=== PATIENT | male | born 1960 | race Caucasian/White ===

== ENCOUNTER 2017-01-15 23:51 | Emergency (ER) | payer OTHER ==
[2017-01-16 00:21] VITALS: BP 95/66; PULSE 95; TEMP 97.7; BMI 28.7
--- NOTE | 2017-01-16 00:33 | PDOC ---
History of Present Illness - General Chief Complaint: Alcohol intoxication Stated Complaint: INTOX Time Seen by Provider: 01/16/17 00:32 Past History - Past Medical History Allergies/Adverse Reactions: Allergies Allergy/AdvReac Type Severity Reaction Status Date / Time No Known Allergies Allergy Verified 01/16/17 00:05 Diabetes: Yes HTN: Yes Psychiatric Problems: Yes (Anxiety) - Surgical History Cholecystectomy: Yes - Psycho/Social/Smoking Cessation Hx Anxiety: Yes Suicidal Ideation: No Smoking History: Current every day smoker Number of Cigarettes Smoked Daily: 5 Information on smoking cessation initiated: No Hx Alcohol Use: Yes Drug/Substance Use Hx: No Substance Use Type: Alcohol *Physical Exam - Vital Signs Last Vital Signs Temp Pulse Resp BP Pulse Ox 97.7 F 95 H 20 95/66 96 01/16/17 00:05 01/16/17 00:05 01/16/17 00:05 01/16/17 00:05 01/16/17 00:05
== END 2017-01-16 01:20 | disposition left against medical advice (07) ==
LOC: JER 23:51
DX: Z53.1 Procedure and treatment not carried out because of patient's decision for reasons of belief and group pressure (principal)
CPT/HCPCS: 99281-25

== ENCOUNTER 2017-03-27 17:48 | Emergency (ER) | payer OTHER ==
[2017-03-27 17:52] VITALS: BMI 29.7
--- NOTE | 2017-03-27 19:11 | PDOC ---
History of Present Illness - General Chief Complaint: Psychiatric Stated Complaint: FATIGUE/ DEPRESSION Time Seen by Provider: 03/27/17 19:11 - History of Present Illness Initial Comments: 56 year old with history of anxiety, depression, and EtOh abuse presenting for anxiety and depression. He was supposed to be admitted to inpatient rehab at [facility] yesterday but there were unable to accommodate him so they told him to return on Wednesday. He states that he has nowhere to go and he was recently kicked out of his girlfriend's apartment. After speaking to [facility] in length ( they were very helpful) he is ineligible for detox because he was recently detoxed and must return there on Wednesday for a rehab admission. Denies current SI , or HI, but does say he feels the need to drink. He does not admit to any signs of withdrawal and has not been hospitalized for withdrawal in the past. 03/27/17 20:37 Past History - Past Medical History Allergies/Adverse Reactions: Allergies Allergy/AdvReac Type Severity Reaction Status Date / Time fish derived Allergy Verified 03/27/17 18:54 Home Medications: Ambulatory Orders Aripiprazole 10 mg PO DAILY 03/27/17 Chlordiazepoxide [Librium -] 5 mg PO QID 03/27/17 Escitalopram Oxalate [Lexapro -] 20 mg PO DAILY 03/27/17 Flunisolide 25 ml NS TID 03/27/17 Folic Acid 1 mg PO DAILY 03/27/17 Lisinopril 10 mg PO DAILY 03/27/17 Metformin HCl 500 mg PO BID 03/27/17 Mirtazapine 45 mg PO HS 03/27/17 Multivitamin [One Daily] 1 each PO DAILY 03/27/17 Naltrexone HCl 50 mg PO DAILY 03/27/17 Nicotine Patch [Nicoderm Patch -] 1 patch TD DAILY 03/27/17 Pantoprazole Sodium 40 mg PO DAILY 03/27/17 Thiamine HCl [Vitamin B1] 100 mg NR DAILY 03/27/17 Diabetes: Yes HTN: Yes Psychiatric Problems: Yes (Anxiety) - Surgical History Cholecystectomy: Yes - Suicide/Smoking/Psychosocial Hx Smoking History: Current every day smoker Number of Cigarettes Smoked Daily: 5 Information on smoking cessation initiated: Yes 'Breaking Loose' booklet given: 03/27/17 Hx Alcohol Use: Yes (almost daily) Drug/Substance Use Hx: Yes (marijuana) Substance Use Type: None Review of Systems - Review of Systems Constitutional: No: Diaphoresis, Loss of Appetite, Night Sweats HEENTM: No: Recent change in vision Respiratory: No: Cough, Shortness of Breath : No: Hematuria, Incontinence Integumentary: No: Bruising, Change in Color Neurological: No: Headache, Numbness Psychiatric: Yes: Anxiety, Depression *Physical Exam - Vital Signs Last Vital Signs Temp Pulse Resp BP Pulse Ox 98.1 F 94 H 18 146/81 97 03/27/17 17:50 03/27/17 17:50 03/27/17 17:50 03/27/17 17:50 03/27/17 17:50 - Physical Exam General Appearance: Yes: Nourished, Appropriately Dressed. No: Apparent Distress HEENT: positive: EOMI, GIULIA, Normal ENT Inspection, Normal Voice Neck: positive: Trachea midline, Normal Thyroid, Supple. negative: Tender, Rigid Respiratory/Chest: positive: Lungs Clear, Normal Breath Sounds. negative: Chest Tender, Respiratory Distress Cardiovascular: positive: Regular Rhythm, Regular Rate Gastrointestinal/Abdominal: positive: Normal Bowel Sounds, Soft. negative: Tender, Flat Musculoskeletal: positive: Normal Inspection. negative: CVA Tenderness Integumentary: positive: Normal Color, Dry, Warm Neurologic: positive: health plan specialist II-XII NML intact, Fully Oriented, Alert, Normal Mood/ Affect, Normal Response, Motor Strength 5/5 Medical Decision Making - Medical Decision Making Patient medically stable with last drink yesterday evening and a positive blood alcohol level yesterday but currently not intoxicated or showing signs of withdrawal. Will observe the patient until 8 AM at which poitn he can seek nursing home at his girlfriend's place or a nursing home until Wednesday where he can re- visit [facility] and initiate inpatient rehab. 03/27/17 21:04 *DC/Admit/Observation/Transfer Diagnosis at time of Disposition: Depression Qualifiers: Depression Type: unspecified Qualified Code(s): F32.9 - Major depressive disorder, single episode, unspecified; F32.9 - Major depressive disorder, single episode, unspecified; F32.9 - Major depressive disorder, single episode, unspecified - Discharge Dispostion Admit: No - Patient Instructions Additional Instructions: Please either stay at a nursing home until Wednesday or with your girlfriend until they an accommodate you at [facility]
--- NOTE | 2017-03-27 19:44 | PDOC ---
Attending Attestation - Resident Resident Name: Oleg Metcalf - ED Attending Attestation I have performed the following: I have examined & evaluated the patient, The case was reviewed & discussed with the resident, I agree w/resident's findings & plan, Exceptions are as noted - HPI HPI: 03/27/17 21:00 56y M presenting with wanting rehab. The pt staes he recently was admitted to [facility] for detox and was discharged to [facility] for rehab, however there was no bed availble for him until wednesday so he came here. the pt is otherwise asymptomatic, but states he did have some etoh after leaving detox. on exam the pt appears well and is in no distress. deneis any si/hi, lungs cta will like dc the pt to rehab or home until there is avaiable rehab bed. - Physicial Exam PE: 03/28/17 08:02 see above - Medical Decision Making 03/28/17 08:03 see above
[2017-03-27 20:23] VITALS: PULSE 81
[2017-03-28 07:04] VITALS: BP 133/87; TEMP 97.8
== END 2017-03-28 09:51 | disposition home or self-care (01) ==
LOC: JER 17:48
DX: F32.9 Major depressive disorder, single episode, unspecified (principal); F10.10 Alcohol abuse, uncomplicated; F41.8 Other specified anxiety disorders; E11.9 Type 2 diabetes mellitus without complications; I10 Essential (primary) hypertension; F17.210 Nicotine dependence, cigarettes, uncomplicated
CPT/HCPCS: 99283-25

== ENCOUNTER 2017-03-28 13:55 | Emergency (ER) | payer OTHER ==
[2017-03-28 14:01] VITALS: BMI 29.3
[2017-03-28 15:54] LABS: BASOPHIL 0.8 % (0-2.0); EOSINOPHIL 0.5 % (0-4.5); MCH 29.9 pg (25.7-33.7); MCHC 33.2 g/dl (32.0-35.9); MEAN PLT VOLUME 7.7 fl (7.5-11.1); NEUTROPHILS 67.5 % (42.8-82.8); PLATELET COUNT 239 K/MM3 (134-434); RDW 14.4 % (11.9-15.9); WHITE BLOOD COUNT 8.5 K/mm3 (4.0-10.0)
[2017-03-28 16:04] LABS: URINE APPEARANCE SLCLOUDY; URINE BILIRUBIN NEGATIVE (NEGATIVE); URINE BLOOD NEGATIVE (NEGATIVE); URINE COLOR DKYELLOW; URINE GLUCOSE (UA) 1+ (NEGATIVE); URINE KETONE NEGATIVE (NEGATIVE); URINE NITRITE NEGATIVE (NEGATIVE); URINE PROTEIN NEGATIVE (NEGATIVE)
[2017-03-28 16:17] LABS: ALBUMIN 3.6 g/dl (3.4-5.0); ANION GAP 8 (8-16); CALCIUM 9.4 mg/dL (8.5-10.1); CO2 30 mmol/L (21-32); CREATININE 1.1 mg/dL (0.7-1.3); GLUCOSE,RANDOM 91 mg/dL (74-106); MAGNESIUM 2.2 mg/dL (1.8-2.4); SGOT/AST 88 U/L (15-37); SGPT/ALT 119 U/L (12-78)
[2017-03-28 16:19] LABS: ALK PHOS 202 U/L (45-117); BILIRUBIN,TOTAL 0.5 mg/dL (0.2-1.0); TOT PROT 7.1 g/dl (6.4-8.2)
--- NOTE | 2017-03-28 16:37 | PDOC ---
History of Present Illness <Shadia Carroll - Last Filed: 03/29/17 06:50> - General History Source: Patient Exam Limitations: No Limitations - History of Present Illness Travel History: No Initial Comments: 03/28/17 15:37 56-year-old male with history of alcohol abuse and anxiety presents to the ED with complaints of one episode of loose stool accompanied with lower abdominal pain which he states has resolved since arrival. Patient denies fever, chills, nausea, history of colitis, diverticulitis or IBS. Patient states was here earlier today for anxiety and depression but went home after feeling better. Patient has no complaints of recent constipation, recent change in diet, or recent travel. Patient does state history of cholecystectomy and is currently on medication for acid reflux. Timing/Duration: reports: resolved prior to arrival Quality: reports: mild, cramping Abdominal Pain Onset Location: reports: RLQ, LLQ Pain Radiation: denies: no radiation Aggravating Factors: worse with: None Alleviating Factors: worse with: None <Mirna Spangler - Last Filed: 04/01/17 08:43> - General Chief Complaint: Pain Stated Complaint: ABD PAIN Time Seen by Provider: 03/28/17 14:47 Past History <Shadia Carroll - Last Filed: 03/29/17 06:50> - Travel Traveled outside of the country in the last 30 days: No - Past Medical History Diabetes: Yes HTN: Yes Psychiatric Problems: Yes (Anxiety) - Surgical History Cholecystectomy: Yes - Suicide/Smoking/Psychosocial Hx Smoking History: Never smoked Number of Cigarettes Smoked Daily: 5 Information on smoking cessation initiated: No 'Breaking Loose' booklet given: 03/27/17 Hx Alcohol Use: No Drug/Substance Use Hx: No Substance Use Type: None Patient Lives Alone: Yes Lives with/in: lives alone <Mirna Spangler - Last Filed: 04/01/17 08:43> - Past Medical History Allergies/Adverse Reactions: Allergies Allergy/AdvReac Type Severity Reaction Status Date / Time fish derived Allergy Verified 03/28/17 14:00 Home Medications: Ambulatory Orders Aripiprazole 10 mg PO DAILY 03/27/17 Chlordiazepoxide [Librium -] 5 mg PO QID 03/27/17 Escitalopram Oxalate [Lexapro -] 20 mg PO DAILY 03/27/17 Flunisolide 25 ml NS TID 10/07/17 Folic Acid 1 mg PO DAILY 03/27/17 Lisinopril 10 mg PO DAILY 03/27/17 Metformin HCl 500 mg PO BID 03/27/17 Mirtazapine 45 mg PO HS 03/27/17 Multivitamin [One Daily] 1 each PO DAILY 03/27/17 Naltrexone HCl 50 mg PO DAILY 03/27/17 Nicotine Patch [Nicoderm Patch -] 1 patch TD DAILY 03/27/17 Pantoprazole Sodium 40 mg PO DAILY 03/27/17 Thiamine HCl [Vitamin B1] 100 mg NR DAILY 03/27/17 Abd/GI Specific PMHX - Complaint Specific PMHX GERD: Yes <Mirna Spangler - Last Filed: 04/01/17 08:43> Review of Systems - Review of Systems Able to Perform ROS?: No Constitutional: No: Symptoms Reported HEENTM: No: Symptoms Reported Respiratory: No: Symptoms reported Cardiac (ROS): No: Symptoms Reported ABD/GI: Yes: Diarrhea Musculoskeletal: No: Symptoms Reported Integumentary: No: Symptoms Reported Neurological: No: Symptoms reported Endocrine: No: Symptoms Reported Hematologic/Lymphatic: No: Symptoms Reported <Mirna Spangler - Last Filed: 04/01/17 08:43> *Physical Exam - Vital Signs Last Vital Signs Temp Pulse Resp BP Pulse Ox 97.8 F 108 H 19 128/87 99 03/28/17 13:58 03/28/17 13:58 03/28/17 13:58 03/28/17 13:58 03/28/17 13:58 <hSadia Carroll - Last Filed: 03/29/17 06:50> - Vital Signs Last Vital Signs Temp Pulse Resp BP Pulse Ox 97.8 F 108 H 19 128/87 99 03/28/17 13:58 03/28/17 13:58 03/28/17 13:58 03/28/17 13:58 03/28/17 13:58 - Physical Exam General Appearance: Yes: Nourished, Appropriately Dressed. No: Apparent Distress HEENT: positive: EOMI, GIULIA. negative: Pale Conjunctivae Neck: positive: Supple Respiratory/Chest: positive: Lungs Clear, Normal Breath Sounds. negative: Respiratory Distress, Accessory Muscle Use Cardiovascular: positive: Regular Rhythm, Tachycardia. negative: Murmur Gastrointestinal/Abdominal: positive: Normal Bowel Sounds, Soft. negative: Distended, Tenderness Musculoskeletal: negative: CVA Tenderness Extremity: positive: Normal Capillary Refill. negative: Pedal Edema Integumentary: positive: Normal Color, Warm, Moist Neurologic: positive: Motor Strength 5/5 (ambulatory). negative: Normal Mood/ Affect (anxious) <Mirna Spangler - Last Filed: 04/01/17 08:43> ED Treatment Course - LABORATORY CBC & Chemistry Diagram: 03/28/17 15:36 03/28/17 15:36 - ADDITIONAL ORDERS Additional order review: Laboratory Results 03/28/17 03/28/17 03/28/17 15:36 15:36 15:36 Sodium Potassium Chloride Carbon Dioxide Anion Gap BUN Creatinine Creat Clearance w eGFR Random Glucose Lactic Acid 1.0 Calcium Magnesium Cancelled Total Bilirubin AST ALT Alkaline Phosphatase Total Protein Albumin Lipase Cancelled Urine Color Dkyellow Urine Appearance Slcloudy Urine pH 6.0 Ur Specific Forman 1.025 Urine Protein Negative Urine Glucose (UA) 1+ H Urine Ketones Negative Urine Blood Negative Urine Nitrite Negative Urine Bilirubin Negative Urine Urobilinogen 2.0 Ur Leukocyte Esterase Negative 03/28/17 15:36 Sodium 140 Potassium 4.4 Chloride 102 Carbon Dioxide 30 Anion Gap 8 BUN 21 H Creatinine 1.1 Creat Clearance w eGFR > 60 Random Glucose 91 Lactic Acid Calcium 9.4 Magnesium 2.2 Total Bilirubin 0.5 AST 88 H ALT 119 H Alkaline Phosphatase 202 H Total Protein 7.1 Albumin 3.6 Lipase 484 H Urine Color Urine Appearance Urine pH Ur Specific Forman Urine Protein Urine Glucose (UA) Urine Ketones Urine Blood Urine Nitrite Urine Bilirubin Urine Urobilinogen Ur Leukocyte Esterase 03/28/17 15:36 RBC 4.72 MCV 90.0 MCHC 33.2 RDW 14.4 MPV 7.7 Neutrophils % 67.5 Lymphocytes % 20.5 Monocytes % 10.7 H Eosinophils % 0.5 Basophils % 0.8 - Medications Given in the ED: ED Medications Discontinued Medications Generic Name Dose Route Start Last Admin Trade Name Freq PRN Reason Stop Dose Admin Sodium Chloride 1,000 mls @ 1,000 mls/hr 03/28/17 18:02 03/28/17 18:00 Normal Saline - IV 03/28/17 19:01 1,000 mls/hr ASDIR STA Administration <Shadia Carroll - Last Filed: 03/29/17 06:50> - LABORATORY CBC & Chemistry Diagram: 03/28/17 15:36 03/28/17 15:36 - ADDITIONAL ORDERS Additional order review: Laboratory Results 03/28/17 15:36 Magnesium Cancelled Lipase Cancelled 03/28/17 15:36 RBC 4.72 MCV 90.0 MCHC 33.2 RDW 14.4 MPV 7.7 Neutrophils % 67.5 Lymphocytes % 20.5 Monocytes % 10.7 H Eosinophils % 0.5 Basophils % 0.8 - RADIOLOGY Radiology Studies Ordered: Category Date Time Status KUB (KID UR & BLAD) [RAD] Stat Radiology 03/28/17 15:26 Ordered <Mirna Spangler - Last Filed: 04/01/17 08:43> Medical Decision Making - Medical Decision Making 03/29/17 06:50 Spoke with [facility] at [facility], whom stated patient had a bed, but no longer has a bed due to first come first serve basis. Patient made aware of this. Patient will be transported to [facility] at 8am to start intake process again. Patient ED Observation status has ended at this time. <Shadia Carroll - Last Filed: 03/29/17 06:50> - Medical Decision Making 03/28/17 15:40 Patient with complaints of one episode of diarrhea accompanied with Toradol pain which she states has resolved since arrival. Patient exam had no reproducible pain and appeared very anxious requesting that someone check his blood work and urine. Patient also requesting to" relax" here in the ER in case symptoms return. 03/28/17 18:00 Laboratory Tests 03/28/17 03/28/17 03/28/17 15:36 15:36 15:36 WBC 8.5 Hgb 14.1 Hct 42.5 Neutrophils % 67.5 Sodium 140 Potassium 4.4 Chloride 102 Carbon Dioxide 30 Anion Gap 8 BUN 21 H Creatinine 1.1 Random Glucose 91 Lactic Acid 1.0 Calcium 9.4 ALT 119 H Alkaline Phosphatase 202 H Lipase 484 H Urine Glucose (UA) Urine Ketones Urine Bilirubin Ur Leukocyte Esterase 03/28/17 15:36 WBC Hgb Hct Neutrophils % Sodium Potassium Chloride Carbon Dioxide Anion Gap BUN Creatinine Random Glucose Lactic Acid Calcium ALT Alkaline Phosphatase Lipase Urine Glucose (UA) 1+ H Urine Ketones Negative Urine Bilirubin Negative Ur Leukocyte Esterase Pending Patient ordered for CAT scan IV contrast. Patient with elevated lipase. Patient also ordered 1 L of normal saline. <Mirna Spangler - Last Filed: 04/01/17 08:43> *DC/Admit/Observation/Transfer - Discharge Dispostion Admit: No <Shadia Carroll - Last Filed: 03/29/17 06:50> <Mirna Spangler - Last Filed: 04/01/17 08:43> Diagnosis at time of Disposition: Intractable abdominal pain, Alcohol abuse - Discharge Dispostion Disposition: HOME Condition at time of disposition: Improved - Referrals Referrals: Jamaica Neves MD, MD [Primary Care Provider] -
[2017-03-28] MEDS ORDERED: SODIUM CHLORIDE 1,000 ML IV STA (18:02)
[2017-03-28 19:20] LABS: URINE LEUK ESTERASE Negative (NEGATIVE)
[2017-03-28] MEDS ORDERED: FOLIC ACID INJECTION - 1 MG, THIAMINE HCL 100 MG, MULTIVIT INJECTION ADULT 10 ML in SOD... IVPB ONE (23:24)
[2017-03-29 08:18] VITALS: BP 126/74; PULSE 89; TEMP 98.5
== END 2017-03-29 08:00 | disposition home or self-care (01) ==
LOC: JER 13:55 → UNDOADMOB 23:26 → JERBED 23:26 → JER 03-29 08:00
PROC: 3E033GC Introduction of Other Therapeutic Substance into Peripheral Vein, Percutaneous Approach (ICD-10-PCS; principal; 2017-03-28)
PROC: 3E0337Z Introduction of Electrolytic and Water Balance Substance into Peripheral Vein, Percutaneous Approach (ICD-10-PCS; 2017-03-28)
DX: R10.9 Unspecified abdominal pain (principal); F10.10 Alcohol abuse, uncomplicated; F41.9 Anxiety disorder, unspecified; I10 Essential (primary) hypertension; E11.9 Type 2 diabetes mellitus without complications; Z91.013 Allergy to seafood; Z79.84 Long term (current) use of oral hypoglycemic drugs
CPT/HCPCS: 36415; 74000-TC; 74177-TC; 80053; 80307; 81003; 83605; 83690; 83735; 85025; 99284-25